=== PATIENT | male | born 1980 | race Caucasian/White ===

== ENCOUNTER → 2018-02-08 12:09 | Outpatient (CLI) | payer BC, SELFPAY | PROVIDERS: PCP Family Medicine; Visit Provider Family Medicine | DX: R06.81 Apnea, not elsewhere classified (principal); R06.83 Snoring; E66.9 Obesity, unspecified; G47.10 Hypersomnia, unspecified | CPT/HCPCS: 95806 ==

== ENCOUNTER → 2018-03-01 09:49 | Outpatient (POV) | payer BC, SELFPAY | PROVIDERS: Visit Provider Dermatology | DX: Z00.00 Encounter for general adult medical examination without abnormal findings (principal) ==

== ENCOUNTER → 2018-08-30 14:13 | Outpatient (CLI) | payer BC, SELFPAY ==
--- NOTE | 2018-08-30 14:23 | US_ITS ---
US extremity LT limited Ordering Physician: ELMER Velázquez Patient Age: 38 years: Male HISTORY: ITS.REASON: MASS ON BACKleft Ultrasound palpable area left aspect of back near scapula TECHNIQUE: Ultrasound back COMPARISON :None FINDINGS Ultrasound demonstrates a mass in the subcutaneous region just beneath the skin surface. (4 mm deep to the surface of skin) this area measures up to 4.1 cm length 3.8 cm transverse and 1.2 cm AP. Discoid appearance and configuration most likely reflecting a lipoma. It does not appear to involve underlying muscle. If it should show progressive enlargement suggest CT. CT is in excellent imaging tool for fat density and can better confirm lipoma *Note scanning of the LEFT scapular rather than right scapula was confirmed by electronic tech and now report is signed and available IMPRESSION: A discoid soft tissue mass just beneath the skin at THE LEFT back near scapula was imaged and by ultrasound survey most compatible with a a lipoma.
== END ==
PROVIDERS: PCP Family Medicine; Visit Provider Physician Assistant
DX: R22.2 Localized swelling, mass and lump, trunk (principal)
CPT/HCPCS: 76882

== ENCOUNTER 2019-08-18 08:00 | Outpatient (RCR) | payer BC, SELFPAY ==
--- NOTE | 2019-07-26 10:11 | HMH.PTOPEV ---
PT Outpatient Evaluation Rehab PT Outpatient Evaluation Start: 07/26/19 08:13 Freq: Status: Active Protocol: Document 07/26/19 09:16 JAY (Rec: 07/26/19 10:11 PHOKE [id number]) Electronically Signed By Kain Lee, PT 07/26/19 09:16 Outpatient Therapy Subjective History Subjective History Pt is 39 yowm who presents with c/o pain in the medial R elbow x ~ 4-5 mos with insidious onset of symptoms. He states, I went on a golf trip in february and my elbow felt kind of stiff and I guess that's when it really started to bother me. He reports pain is activity dependent and worse in the am. He has increased tenderness to palpation at the R medial epicondyle and pain with resisted wrist flexion. He reports significant pain now with swinging a golf club. No significant PMH. Chief Complaint Pain,Stiff Symptom Type Ache Symptoms Relieved By Rest/Positioning Symptoms Aggravated By Physical Activity Prior Functional Limitations None Current Functional Limitations Desk Work/Reading,Recreation Activity Level of pain today (0-10) 0 Pain scale - at its worst (0-10) 7 Shoulder/Elbow Eval Shoulder Objective Measurements Elbow Objective Measurements Palpation Tenderness Elbow Palpation Finding Tenderness tenderness over the medial epicondyle right elbow exam standard Elbow ROM Right full ROM elbow exam standard bilateral Elbow MMT Elbow Flexion Strength Grade 4 Good Biceps Brachii Strength Grade 4 Good Brachioradialis Strength Grade 5 Normal Brachialis Strength Grade 5 Normal Elbow Special Tests Elbow Tinel's Sign Negative Left,Negative Right Medial Epicondylitis Test Negative Left,Positive Right Outpatient Therapy Assessment Impairments Problems/Impairmments Palpation Tenderness,Impaired Strength,Impaired Recreational Activities,Impaired Work Activities,Subjective C/O Pain ,Impaired Self Care/Self Management Prognosis Rehab Potential Good Clinical Impression Consistent with Diagnosis Yes Short Term Goals Number of Weeks 4 Decreased Palpation Tendernes
== END 2019-08-18 08:05 | disposition home or self-care (01) ==
LOC: PT 08:00
PROVIDERS: PCP Family Medicine; Visit Provider Family Medicine
DX: M77.01 Medial epicondylitis, right elbow (principal)
CPT/HCPCS: 20561; 97010; 97014; 97033; 97035; 97110; 97140; 97163; G0283

== ENCOUNTER → 2021-06-10 16:08 | Outpatient (POV) | payer OTHER, SELFPAY | PROVIDERS: Visit Provider Dermatology | DX: Z00.00 Encounter for general adult medical examination without abnormal findings (principal) ==

== ENCOUNTER → 2021-06-24 08:03 | Outpatient (POV) | payer OTHER, SELFPAY | PROVIDERS: Visit Provider Dermatology | DX: Z00.00 Encounter for general adult medical examination without abnormal findings (principal) ==

== ENCOUNTER → 2022-04-30 11:28 | Outpatient (CLI) | payer OTHER, SELFPAY ==
[2022-04-30 11:46] LABS: Coronavirus 19, PCR Not Detected (NotDetected); Influenza A, PCR Not Detected (NotDetected); Influenza B, PCR Not Detected (NotDetected)
[2022-04-30 11:54] LABS: Basophils # 0.2 K/mm3 (0-0.2); Basophils % 1.8 % (0.1-2.0); Eosinophils # 0.2 K/mm3 (0.0-0.4); Eosinophils % 1.3 % (0.1-12.0); Hematocrit 46.9 % (42.0-52.0); Hemoglobin 14.8 g/dL (14.1-18.0); Lymphocytes # 1.2 K/mm3 (0.7-4.5); Lymphocytes % 10.1 % (10-50); Mean Corpuscular HGB Conc 31.6 g/dL (31.8-35.4); Mean Corpuscular Hemoglobin 29.5 pg (27.0-31.2); Mean Corpuscular Volume 93.1 fl (80-94); Monocytes # 0.6 K/mm3 (0.1-1.0); Monocytes % 5.4 % (1.7-9.3); Neutrophils # 9.7 K/mm3 (1.8-7.8); Neutrophils % 81.5 % (37.0-80.0); Platelet Count 278 K/mm3 (142-424); Red Blood Count 5.04 M/mm3 (4.60-6.20); Red Cell Distribution Width 13.2 % (11.5-17.5); White Blood Count 11.9 K/mm3 (4.8-10.8)
[2022-04-30 12:01] LABS: Strep Scrn Group A (Rapid) Negative (Negative)
== END ==
PROVIDERS: PCP Family Medicine; Visit Provider Physician Assistant
DX: Z20.822 Contact with and (suspected) exposure to COVID-19 (principal)
CPT/HCPCS: 36415; 85025; 87430; C9803; U0003; U0005

== ENCOUNTER 2023-06-22 15:19 | Outpatient (CLI) | payer OTHER, SELFPAY ==
[2023-06-23 08:19] LABS: Varicella Zoster IgG 440 index (Immune >165)
== END 2023-06-22 23:59 ==
LOC: LAB 15:21
PROVIDERS: PCP Family Medicine; Visit Provider Family Medicine
DX: Z01.84 Encounter for antibody response examination (principal)
CPT/HCPCS: 36415; 86787

== ENCOUNTER 2024-02-13 11:58 | Emergency (ER) | payer OTHER, SELFPAY ==
[2024-02-13 12:45] VITALS: BP 166/103; PULSE 75; RESP 20; TEMP 36.5; O2SAT 96; BMI 33.8
--- NOTE | 2024-02-13 12:55 | EXP.UTC ---
Discharge Plan Disposition Patient Disposition: Home, Self-Care Condition: Good Prescriptions Prescriptions: New methylprednisolone [Medrol (Bryan)] 4 mg tablets,dose pack See Rx Instructions .Route .COMPLEX 6 Days Qty: 21 0RF Rx Instructions: taper pack; triamcinolone acetonide 0.025 % ointment 1 applic topical TID PRN (Reason: rash) Qty: 15 0RF Rx Instructions: apply thin layer to rash on hands and forearm, do not apply to face No Action rosuvastatin 20 mg tablet 20 mg PO ONCE Referrals Follow up/Referrals: Jose Miguel Armijo MD [Primary Care Provider] - See instructions Activity Restrictions/Add. Instructions Additional Instructions/Restrictions: Start oral steriods tomorrow Oatmeal bathes may help to soothe the skin Calamine lotion may help with itching and drying of rash Over the counter Benadryl may help with itching Topical Streriod to rash on hands and arm but not on your face Clinical Impressions Clinical Impression: Poison ponce dermatitis Instructions Patient Instructions: Summertime Rashes: Poison Ponce, [place], and [place], Poison Ponce, Poison [place], Poison [place], DI for Poison Ponce Allergy Print Language Print Language: Maori Discharge ED Provider: Chantell Young [facility] [place] HPI General Stated complaint: rash Mode of Arrival: Ambulatory Source of Information: Patient Limitations: No Limitations Time Seen by Provider: 02/13/24 12:55 Description of Symptoms (Recalled from Triage Doc. by RN): PATIENT C/O POISON PONCE RASH TO LEFT ARM AND RIGHT HAND X 6 DAYS HEENT Symptoms (Recalled from RN notes): No Resp Symptoms (Recalled from RN notes): No Skin Symptoms (Recalled from RN notes): Yes MS Symptoms (Recalled from RN notes): No Functional Status (Recalled from RN notes): WNL History of Present Illness Provider Complaint: Patient states that he has been having poison ponce rash to his left forearm, hand and now breaking out on his face for about a week States he has been trying over the counter stuff to treat it but it isnt working Related Data Home Medications ?Medication ?Instructions ?Recorded ?Confirmed rosuvastatin 20 mg tablet 20 mg PO ONCE 10/14/22 02/13/24 Previous Rx's ?Medication ?Instructions ?Recorded methylprednisolone 4 mg tablets in See Rx Instructions .Route 02/13/24 a dose pack (Medrol (Bryan)) .COMPLEX 6 days #21 tabs triamcinolone acetonide 0.025 % 1 applic topical TID PRN rash #15 02/13/24 topical ointment grams Allergies Allergy/AdvReac Type Severity Reaction Status Date / Time No Known Allergies Allergy Verified 10/14/22 08:21 Worker's Comp Is this a Worker's Comp case?: No [facility] Disclaimer: The information contained in this section may have been updated after the patient was seen, as this information can be updated by other users. Medical History (Updated 02/13/24 @ 13:00 by Chantell Young APRN) JOZEF (obstructive sleep apnea) Family History Other Coronary artery disease Diabetes Heart attack Hyperlipidemia Social History Smoking Status: Never smoker alcohol intake: current alcohol intake frequency: holidays/special occasions only substance use type: denies use current occupational status: employed Travel in the last 8 weeks: None household members: family housing: house ROS Obtained: Yes All systems reviewed & no additional complaints except as documented and Yes Systems reviewed as appropriate & no additional complaints except as documented Constitutional Constitutional: Reports system reviewed and no additional complaints, except as documented and Reports as per HPI ENT Ears, Nose, Mouth, and Throat: Reports system reviewed and no additional complaints, except as documented and Reports as per HPI Cardiovascular Cardiovascular: Reports system reviewed and no additional complaints, except as documented and Reports as per HPI Respiratory Respiratory: Reports system reviewed and no additional complaints, except as documented and Reports as per HPI Gastrointestinal Gastrointestingal: Reports system reviewed and no additional complaints, except as documented and as per HPI Musculoskeletal Musculoskeletal: Reports system reviewed and no additional complaints, except as documented and Reports as per HPI Integumentary/Breasts Skin/Breast: Reports pruritus and Reports rash Physical Exam General General appearance: alert and in no apparent distress ENT ENT exam: Present mucous membranes moist Respiratory Respiratory exam: Present normal lung sounds bilaterally; Absent respiratory distress or wheezes Cardiovascular Cardiovascular exam: Present regular rate, normal rhythm and normal heart sounds Neurological Exam Neurological exam: Present alert, oriented X3 and normal gait Skin Skin exam: Present rash (red fluid filled rash noted on right cheek area, right hand and left ac area appears like poison ponce dermatitis) Medical Decision Making Jaime Inquiry Pt receiving controlled substance: No Jaime was queried for this patient: No Vital Signs: 02/13/24 12:45 Temperature 97.7 F Temperature Source Oral Pulse Rate [Left Brachial] 75 Respiratory Rate 20 Blood Pressure [Left Arm] 166/103 H Blood Pressure Mean [Left Arm] 124 Blood Pressure Source [Left Arm] Automatic Cuff Blood Pressure Position [Left Arm] Sitting 02 Sat by Pulse Oximetry 96 Oxygen Delivery Method Room Air
[2024-02-13] MEDS: METHYLPREDNISOLONE SOD SUCC 125MG VIAL 125 MG IM (13:00)
[2024-02-13 13:34] VITALS: BP 166/103; PULSE 75; RESP 20; TEMP 36.5; O2SAT 96
== END 2024-02-13 13:37 | disposition home or self-care (01) ==
PROVIDERS: Emergency Provider Nurse Practitioner; PCP Family Medicine
DX: L23.7 Allergic contact dermatitis due to plants, except food (principal); W60.XXXA Contact with nonvenomous plant thorns and spines and sharp leaves, initial encounter
CPT/HCPCS: 96372; 99204; 99212; G0463; J2919

== ENCOUNTER 2024-03-27 08:44 | Outpatient (CLI) | payer SELFPAY ==
--- NOTE | 2024-03-27 | CT_ITS ---
APPROVED REPORT Occup Therapist: CLINICAL INDICATION Risk stratification TECHNIQUE Image Acquisition: A 128 slice MDCT scanner ([employer] View) was used for data acquisition. A noncontrast coronary calcium scan was performed. A CT attenuation threshold of 130 Hounsfield units (HU) was used for the detection of calcium in contiguous voxels of 1 sq mm in area to be counted as individual lesions. A tube voltage of 120 KVp was used. The patient received no medications prior to the coronary calcium CT. Image Reconstruction Transaxial images were reconstructed at 0.67 mm slide thickness. Data was reviewed interactively on an advanced workstation capable of 2 and 3-dimensional displays in all conventional reconstruction formats, including multiplanar reformations, maximum intensity projections, curved multiplanar reformations, and volume rendered reconstructions. When applicable, selected routine images describing the relevant coronary anatomy and pathology were saved and sent to PACS. Complications None Technical Quality Overall image quality was good. Total DLP (Dose-Length Product) is 143.9 mGy-cm. The reported value represents the total of one or more individual components during the CT acquisition of this date and at this time, and as such, the same value may appear in more than one CT report depending on the interpreting/reporting physicians. COMPARISON None FINDINGS CT Coronary Calcium Scoring LMA (Left Main Artery) = 0 LAD (Left Anterior Descending) = 94 LCX (Left Coronary Circumflex) = 0 RCA (Right Coronary Artery) = 0 Total Calcium Score = 94 using the AJ-130 method. There is no identifiable calcification in the aortic valve, mitral annulus or mitral valve, pericardium, or myocardium. IMPRESSION -Coronary artery calcification is present. -Total Calcium Score (Agatston Score) = 94 using the AJ-130 method. -The observed calcium score of 94 is at 95th percentile for subjects of the same age, sex, and race/ethnicity. The interpretation of the calcium heart score is based on the following continuum*: 0 = no calcified plaque detected (risk of coronary artery disease is very low ??? less than 5%) 1-10 = calcium detected in extremely minimal levels (risk of coronary diseases is still low ??? less than 10%) 11-100 = mild levels of plaque detected with certainty (mild or minimal narrowing of heart arteries is likely) 101-400 = definite,at least moderate levels of plaque detected (relatively high risk of a heart attack within 3-5 years) >401-999 = extensive levels of plaque detected (high risk of heart attack, high levels of vascular disease are present, high likelihood of at least one significant coronary narrowing) *The calcium heart score quantifies the burden of coronary calcification/plaque in the coronary arteries. The calcium heart score does not evaluate the presence or the burden of non-calcified (i.e. soft) plaque. The coronary and cardiac findings of this Coronary Calcium CT were reviewed, reported, and signed by Stevie Zhou MD (Developmental Psychologist). Conclusion Electronically signed by : Charisma Zhou MD 03/27/2024 12:25:20
== END 2024-03-27 23:59 | disposition home or self-care (01) ==
LOC: RAD 08:47
PROVIDERS: PCP Family Medicine; Visit Provider Family Medicine
DX: Z13.6 Encounter for screening for cardiovascular disorders (principal); Z82.49 Family history of ischemic heart disease and other diseases of the circulatory system
CPT/HCPCS: 75571